=== PATIENT | female | born 1945 | race Two or more races ===

== ENCOUNTER 2021-09-19 15:00 | Emergency (ER) | payer SELFPAY ==
[~2021-09-19] VITALS: Ht 154.9 cm; Wt 59.0 kg
[2021-09-19 15:00] VITALS: BP 134/61
[2021-09-19] MEDS ORDERED: IODIXANOL 320MG/ML 100ML BTL IV ONE (20:10)
== END 2021-09-19 20:14 | disposition left against medical advice (07) ==
LOC: ER 15:00 → EDSEX 15:00 → ER 20:14
DX: N39.0 Urinary tract infection, site not specified (principal); Z53.29 Procedure and treatment not carried out because of patient's decision for other reasons
CPT/HCPCS: Q9967